=== PATIENT | female | born 1975 | race African-American/Black ===

== ENCOUNTER 2018-02-15 03:11 | Emergency (ER) | payer SELFPAY ==
[~2018-02-15] VITALS: Ht 172.7 cm; Wt 100.0 kg
[2018-02-15] MEDS ORDERED: IBUPROFEN 600MG TABLET PO ONE (04:45)
[2018-02-15 05:17] LABS: BASOPHILS % 0.8 % (0.0-2.0); EOSINOPHILS % 1.9 % (0.0-5.0); HEMATOCRIT. 41.5 % (36.0-48.0); HEMOGLOBIN. 13.7 g/dL (12.0-16.0); LYMPHOCYTES % 19.2 % (20.0-50.0); MEAN CORPUSCULAR HEMOGLOBIN 28.1 pg (28.0-32.0); MEAN CORPUSCULAR VOLUME 84.8 fL (81.0-99.0); MEAN PLATELET VOLUME 8.9 fl (7.4-10.4); MONOCYTES % 6.4 % (2.0-8.0); NEUTROPHILS % 71.7 % (40.0-76.0); PLATELET 281 x1000/uL (130-400); RED BLOOD CELL COUNT 4.89 mill/uL (4.2-5.4); RED CELL DISTRIBUTION WIDTH 13.6 % (11.6-14.6)
[2018-02-15 05:22] LABS: CHLORIDE 104 mEq/L (98-107)
[2018-02-15 05:26] LABS: ETHANOL BLOOD < 10 mg/dL
[2018-02-15] MEDS ORDERED: ONDANSETRON HCL 4MG/2ML INJ IV STA (07:49)
[2018-02-15] MEDS ORDERED: SODIUM CHLORIDE 0.9% 1,000 ML IV ONE (07:49)
[2018-02-15 08:03] LABS: CLARITY URINE CLEAR (CLEAR); COLOR URINE YELLOW (YELLOW); KETONES URINE NEGATIVE (NEGATIVE); LEUKOCYTE ESTERASE URINE TRACE (NEGATIVE); NITRITE URINE NEGATIVE (NEGATIVE); OCCULT BLOOD URINE NEGATIVE (NEGATIVE); PROTEIN URINE NEGATIVE (NEGATIVE); SPECIFIC GRAVITY URINE 1.007 (1.005-1.030); UROBILINOGEN URINE 0.2 E.U./dL (0.2-1.0)
[2018-02-15 08:11] LABS: *BARBITURATES SCREEN URINE NEGATIVE (NEGATIVE); *BENZODIAZEPINES SCREEN URINE NEGATIVE (NEGATIVE); *COCAINE SCREEN URINE NEGATIVE (NEGATIVE)
[2018-02-15 08:12] LABS: CANNABINOID URINE SCREEN NEGATIVE (NEGATIVE); METHADONE URINE SCREEN NEGATIVE (NEGATIVE); OPIATES URINE SCREEN NEGATIVE (NEGATIVE); PHENCYCLIDINE URINE SCREEN NEGATIVE (NEGATIVE)
[2018-02-15 08:27] LABS: *AMPHETAMINES SCREEN URINE PRESUMTIVE POSITIVE (NEGATIVE)
[2018-02-15] MEDS ORDERED: KETOROLAC 30MG/ML VIAL IV STA (10:16)
[2018-02-15] MEDS ORDERED: ACETAMINOPHEN WITH CODEINE 300/30MG TABLET PO STA (12:06)
[2018-02-15 13:25] VITALS: BP 122/78
== END 2018-02-15 13:53 | disposition home or self-care (01) ==
LOC: ER 03:11
DX: R10.11 Right upper quadrant pain (principal); F15.10 Other stimulant abuse, uncomplicated
CPT/HCPCS: 36415; 76700; 80053; 80305; 81003; 81025; 83690; 85025; 85610; 96374; 96375; 99285; G0482; J1885; J2405; J7030; Z7610